=== PATIENT | female | born 1990 | race Caucasian/White ===

== ENCOUNTER 2016-11-27 04:20 | Emergency (ER) | payer BC ==
[2016-11-27 04:27] VITALS: RESP 16
--- NOTE | 2016-11-27 04:32 | EDPHY ---
H & P Stated Complaint: Nauseated/sinus congestion/ fatigue HPI/ROS: HPI CHIEF COMPLAINT: Nauseated, sinus congestion, sore throat, chills, cough with productive sputum HISTORY OF PRESENT ILLNESS: This patient is a very pleasant 26-year-old female denies any significant medical history except for Crohn's disease, she is on immunosuppressants, the patient presents to the emergency room the 4-5 days of cold symptoms. Patient states that she has had intermittent nausea sinus congestion, runny nose clear, as well as cough sometimes productive, clear sputum. No blood. Denies chest pain shortness of breath. Intermittent chills. She denies any urinary symptoms. Past Medical History: Crohn's disease Past Surgical History: No recent surgery Social History: Denies daily use drugs alcohol tobacco products. Grad student. Family History: Noncontributory. ROS REVIEW OF SYSTEMS: A comprehensive 10 point review of systems is otherwise negative aside from elements mentioned in the history of present illness. Exam Constitutional appears well nontoxic, triage nursing summary reviewed, vital signs reviewed, awake/alert. Eyes normal conjunctivae and sclera, EOMI, PERRLA. HENT posterior pharynx normal, no significant erythema or exudate, TMs bilaterally clear, patient does have pressure to her anterior maxillary sinus, tender palpation, no submandibular lymphadenopathy normal inspection, atraumatic , moist mucus membranes, no epistaxis, neck supple/ no meningismus, no raccoon eyes. Respiratory clear to auscultation bilaterally, normal breath sounds, no respiratory distress, no wheezing. Cardiovascular rate normal, regular rhythm, no murmur, no edema, distal pulses normal. Gastrointestinal soft, non-tender, no rebound, no guarding, normal bowel sounds, no distension, no pulsatile mass. Genitourinary no CVA tenderness. Musculoskeletal no midline vertebral tenderness, full range of motion, no calf swelling, no tenderness of extremities, no meningismus, good pulses, neurovascularly intact. Skin pink, warm, & dry, no rash, skin atraumatic. Neurologic awake, alert and oriented x 3, AAOx3, moves all 4 extremities equally, motor intact, sensory intact, CN II-XII intact, normal cerebellar, normal vision, normal speech. Psychiatric normal mood/affect. Heme/Lymph/Immune no lymphadenopathy. Differential Diagnosis: Includes but is not limited to in a particular order, viral syndrome, influenza, viral pneumonia, bacterial pneumonia, atypical pneumonia Medical Decision Making: Plan for this patient chest x-ray two view. Influenza test. Zofran for nausea. Re-evaluation: 0527AM: On re-evaluation patient is resting comfortably. Vital signs are stable. Afebrile. Nontoxic appearing. Given her sinus pressure cough I will treat for acute sinusitis. Amoxicillin. 1st dose given here in emergency room. Her chest x-ray reviewed I do not appreciate acute cardiopulmonary disease. Specifically I do not appreciate pneumonia. Source: Patient - Personal History LMP (Females 10-55): 8-14 Days Ago Current Tetanus/Diphtheria Vaccine: Yes Current Tetanus Diphtheria and Acellular Pertussis (TDAP): Yes - Medical/Surgical History Hx Asthma: No Hx Chronic Respiratory Disease: No Hx Diabetes: No Hx Cardiac Disease: No Hx Renal Disease: No Hx Cirrhosis: No Hx Alcoholism: No Hx HIV/AIDS: No Hx Splenectomy or Spleen Trauma: No Other PMH: Crohns - Social History Smoking Status: Never smoked Constitutional: Initial Vital Signs Temperature (C) 37.4 C 11/27/16 04:24 Heart Rate 96 11/27/16 04:24 Respiratory Rate 16 11/27/16 04:24 Blood Pressure 124/94 H 11/27/16 04:24 O2 Sat (%) 97 11/27/16 04:24 O2 Delivery Mode Room Air Allergies/Adverse Reactions: No Known Allergies Allergy (Unverified 11/27/16 04:27) Home Medications: Medication Instructions Recorded Amoxicillin 500 mg PO TID 7 Days cap 11/27/16 Birthcontrol 11/27/16 CIMZIA 11/27/16 CeleBREX 11/27/16 Methotrexate Sodium 11/27/16 Vit B12/Pyridoxine/Thiamine 11/27/16 Medical Decision Making - Data Points Laboratory Results: 11/27/16 04:30 Influenza A & B (PCR) Pending Medications Given: Discontinued Medications Ondansetron HCl (Zofran Odt) 4 mg PO EDNOW ONE Stop: 11/27/16 04:39 Last Admin: 11/27/16 04:41 Dose: 4 mg Departure - Departure Disposition: Home, Routine, Self-Care Clinical Impression: Sinusitis Qualifiers: Sinusitis location: maxillary Chronicity: acute Recurrence: non-recurrent Qualified Code(s): J01.00 - Acute maxillary sinusitis, unspecified Condition: Good Instructions: Sinusitis (ED) Additional Instructions: 1.Drink lots of fluids. 2. Tylenol Motrin for pain control. 3. Stay well-hydrated. 4. Rest. 5. Amoxicillin as prescribed. 6. Return to the ER for worsening symptoms questions or concerns. Referrals: Patient,NotPresent [Unknown] - As per Instructions Prescriptions: Amoxicillin 500 mg PO TID 7 Days cap
[2016-11-27] MEDS ORDERED: ONDANSETRON DISINTEGRATING 4 MG TAB PO ONE (04:38)
[2016-11-27] MEDS ORDERED: AMOXICILLIN 250 MG PREPACK#4 BTL TAKEHOME ONE (05:26)
[2016-11-27 06:30] VITALS: BP 130/74; PULSE 73; TEMP 97.9; O2SAT 98
== END 2016-11-27 06:30 | disposition home or self-care (01) ==
DX: J01.00 Acute maxillary sinusitis, unspecified (principal)

== ENCOUNTER 2017-03-21 17:44 | Emergency (ER) | payer BC ==
[2017-03-21 18:04] VITALS: BP 144/116; PULSE 94; RESP 17; TEMP 98.6; O2SAT 96
--- NOTE | 2017-03-21 18:33 | EDPHY ---
H & P HPI/ROS: Chief complaint: Left leg laceration History of present illness: This is a 26-year-old female who presents to the emergency department for left leg laceration. Patient reports earlier today she was standing on skis when she tipped over and 1 of the ski struck her left lopez cutting it open. Minimal pain. Minimal bleeding. She continued skiing for a few more hours. It was only and tell after she took off her ski closing that she noticed a laceration. She denies other associated signs or symptoms including no abnormal coolness or paresthesias in the leg. No difficulty moving the leg. She is ambulating well. Her tetanus is up-to-date. Smoking Status: Never smoked Physical Exam: General: Alert, nontoxic Skin: 2 cm horizontally oriented laceration left mid lopez Musculoskeletal: Patient is moving the left lower extremity in all sinha without difficulty Vascular: DP and PT pulses 2+ Neurologic: Sensation intact throughout the left leg Constitutional: Initial Vital Signs Temperature (C) 37 C 03/21/17 18:02 Heart Rate 94 03/21/17 18:02 Respiratory Rate 17 03/21/17 18:02 Blood Pressure 144/116 H 03/21/17 18:02 O2 Sat (%) 96 03/21/17 18:02 O2 Delivery Mode Room Air Allergies/Adverse Reactions: No Known Allergies Allergy (Verified 03/21/17 18:01) Home Medications: Medication Instructions Recorded Birthcontrol 11/27/16 CIMZIA 11/27/16 CeleBREX 11/27/16 Methotrexate Sodium 11/27/16 Vit B12/Pyridoxine/Thiamine 11/27/16 MDM/Departure - MDM Procedures: Procedure: Laceration repair. Verbal consent was obtained from the patient. The 2 cm laceration on the left leg was anesthetized in the usual fashion. The wound was irrigated, draped and explored to its base with a gloved finger. There were no deep structures involved. No tendon injury was identified. The wound was repaired with 4 0 Ethilon, 3 simple interrupted sutures. The wound repair was simple. The procedure was performed by myself. ED Course/Re-evaluation: Patient seen under the supervision of my secondary supervising physician Dr. Deshaun Fernandez. Patient presents to the emergency department for a left leg laceration. The leg is neurovascularly intact. It has been cleaned, repaired and dressed. Her tetanus is already up-to-date. Home care is discussed. Return precautions given. - Depart Disposition: Home, Routine, Self-Care Clinical Impression: Leg laceration Qualifiers: Encounter type: initial encounter Laterality: left Qualified Code(s): S81.812A - Laceration without foreign body, left lower leg, initial encounter Condition: Good Instructions: Care For Your Stitches (ED), Laceration (ED), Acute Wounds (ED) Additional Instructions: Follow-up with your primary care doctor this week for recheck Stitches to be removed in approximately 12 days If symptoms worsen or new symptoms develop return to the emergency room for recheck Referrals: SAMMIE MENDIOLA [Other] - As per Instructions
== END 2017-03-21 18:37 | disposition home or self-care (01) ==
PROC: 0HQLXZZ Repair Left Lower Leg Skin, External Approach (ICD-10-PCS; principal; 2017-03-21)
DX: S81.812A Laceration without foreign body, left lower leg, initial encounter (principal); W22.8XXA Striking against or struck by other objects, initial encounter

== ENCOUNTER 2017-04-30 11:38 | Emergency (ER) | payer BC ==
[2017-04-30 11:59] VITALS: RESP 16
[2017-04-30] MEDS ORDERED: KETOROLAC 15 MG/1 ML SDV IVP ONE (13:07)
--- NOTE | 2017-04-30 13:07 | EDPHY ---
H & P Stated Complaint: l sided pelvic pain similar to when had ovarian cyst before Time Seen by Provider: 04/30/17 12:34 HPI/ROS: CHIEF COMPLAINT: Lower abdominal pain HISTORY OF PRESENT ILLNESS: This is a 26-year-old female with Crohn's disease who presents after the abrupt onset of lower abdominal pain following intercourse. The pain began about 15 min after intercourse. Pain extends across her lower abdomen but is worse on the left. She took Zofran and Tylenol with some relief of her nausea but minimal relief of her pain. She has had a previous ovarian cyst rupture after intercourse and this feels much like that event. She has not had fever. She had nausea but no vomiting. She has not had diarrhea or constipation. Her Crohn's disease is in good control. Her pain is nothing like what she has experienced in the past with Crohn's. No urinary symptoms. She denies vaginal discharge. She is menstruating. REVIEW OF SYSTEMS: A ten point review of systems was performed and is negative with the exception of the items mentioned in the HPI. Past medical history: Crohn's disease, on biologics (cimzia) and methotrexate Social history: She is a student outreach coordinator in physics. She does not use tobacco products. She drinks alcohol on occasion. General Appearance: Alert. Vital signs reviewed. Blood pressure 122/88 at triage. Eyes: Pupils equal and round, no conjunctival injection, no discharge. Anicteric. ENT, Mouth: Mucous membranes are moist, no oropharyngeal erythema or edema. Neck: No lymphadenopathy, supple. Respiratory: Lungs are clear to auscultation; no wheezes, rales, or rhonchi. Cardiovascular: Regular rate and rhythm; no murmur, rub, or gallop. Gastrointestinal: Abdomen is soft with mild tenderness in both lower quadrants , somewhat worse on the left, no guarding or rebound, no masses or organomegaly , bowel sounds normal. Skin: Warm and dry, no rashes on exposed skin, normal color. Back: Nontender to palpation over the thoracolumbar spine. No CVAT. Extremities: No lower extremity edema, no calf tenderness or swelling. Neurological: Alert and oriented. Moving all four extremities easily and equally. Psychiatric: Normal affect. - Personal History LMP (Females 10-55): Now Current Tetanus/Diphtheria Vaccine: Yes - Medical/Surgical History Hx Asthma: No Hx Chronic Respiratory Disease: No Hx Diabetes: No Hx Cardiac Disease: No Hx Renal Disease: No Hx Cirrhosis: No Hx Alcoholism: No Hx HIV/AIDS: No Hx Splenectomy or Spleen Trauma: No Other PMH: Crohns/ovarian cyst - Social History Smoking Status: Never smoked Constitutional: Initial Vital Signs Temperature (C) 36.7 C 04/30/17 11:57 Heart Rate 82 04/30/17 11:57 Respiratory Rate 16 04/30/17 11:57 Blood Pressure 122/88 H 04/30/17 11:57 O2 Sat (%) 97 04/30/17 11:57 O2 Delivery Mode Room Air Allergies/Adverse Reactions: No Known Allergies Allergy (Verified 04/30/17 11:56) Home Medications: Medication Instructions Recorded Birthcontrol 11/27/16 CIMZIA 11/27/16 CeleBREX 11/27/16 Methotrexate Sodium 11/27/16 Vit B12/Pyridoxine/Thiamine 11/27/16 Medical Decision Making ED Course/Re-evaluation: Ultrasound ordered to assess for ruptured ovarian cyst. She will be given Toradol for pain relief. CBC, chemistries, and beta HCG ordered. 1:20 p.m.. Patient's beta HCG is positive. She was informed of this result just prior to the ultrasound and is understandably upset, as she is on methotrexate. Ultrasound shows no intrauterine . There is a right corpus luteum cyst with minimal free fluid, however, ectopic cannot be ruled out. No torsion. Labs reviewed. Her white blood cell count is elevated at over 14,000. She does not have signs or symptoms of infection and I do not suspect an infection such as PID or appendicitis. Ultrasound results relayed to the patient. Quantitative beta HCG is 185. I spoke with the OBGYN ribbon cutter, Dr. Rod. He will follow her in the office. She will have a repeat quantitative beta HCG in 48 hr, for which I have written a prescription. Rh positive. This will be done prior to her appointment with Dr. Rod. I reviewed the danger signs with her that should prompt her to return to the emergency department. She understands that it is unclear whether not she has a tubal . Differential Diagnosis: I considered a differential diagnosis that includes but is not limited to ruptured ovarian cyst, ectopic , PID, post intercourse pain, pain related to menses, appendicitis, and pain related to Crohn's disease. - Data Points Laboratory Results: Laboratory Results 04/30/17 12:12 04/30/17 12:12 Medications Given: Discontinued Medications Ketorolac Tromethamine (Toradol) 15 mg IVP ONCE ONE Stop: 04/30/17 13:08 Last Admin: 04/30/17 13:12 Dose: 15 mg Departure - Departure Disposition: Home, Routine, Self-Care Clinical Impression: Positive blood test Condition: Good Instructions: Ectopic (ED) Additional Instructions: I am giving information about ectopic . I do not know whether you have an ectopic or not. As you know, your blood test was positive but we do not see an early in your uterus. Follow up with Dr. Rod on Monday. His office should call you to arrange a time. If you do not hear from them, you should call the office yourself. You need to have your blood drawn before seeing him. If you have worsening pain, fainting, heavy bleeding, any new or concerning symptoms--you should be re-evaluated immediately. Referrals: NONE *PRIMARY CARE P,. [Primary Care Provider] - As per Instructions Oral Rod MD [Medical Doctor] - As per Instructions
[2017-04-30 13:10] LABS: PLATELET COUNT 261 10^3/uL (150-400)
[2017-04-30 14:01] VITALS: TEMP 98.4
[2017-04-30 16:28] VITALS: BP 139/87; PULSE 82; O2SAT 97
== END 2017-04-30 16:59 | disposition home or self-care (01) ==
DX: Z33.1 Pregnant state, incidental (principal)
CPT/HCPCS: 96374; J1885

== ENCOUNTER 2017-05-18 20:52 | Emergency (ER) | payer BC ==
[2017-05-18 21:01] VITALS: RESP 16
[2017-05-18] MEDS ORDERED: ONDANSETRON 4 MG/2 ML VIAL ONE (21:26)
[2017-05-18] MEDS ORDERED: NS 1,000 ML IV ONE ×2 (21:28→22:14)
[2017-05-18] MEDS ORDERED: ONDANSETRON 4 MG/2 ML VIAL IVP ONE (21:28)
[2017-05-18] MEDS ORDERED: fentaNYL 100 MCG/2 ML INJ IVP ONE (21:40)
[2017-05-18 21:56] LABS: PLATELET COUNT 256 10^3/uL (150-400)
--- NOTE | 2017-05-18 22:15 | EDPHY ---
H & P Stated Complaint: RLQ ABD PAIN 20 MINUTES Time Seen by Provider: 05/18/17 20:59 HPI/ROS: HPI CHIEF COMPLAINT: Abdominal pain, right lower quadrant HISTORY OF PRESENT ILLNESS: This patient 26-year-old female she has history of Crohn's disease on methotrexate, she presents emergency room with abdominal pain. The pain is located right lower quadrant. She states this was sudden onset while sitting at rest and studying. Became very sharp and intense. Located right lower quadrant. She had nausea with no vomiting. She denies fever. Denies chest pain or shortness of breath. Denies diarrhea. Current level pain 05/20. She did receive 50 mcg of fentanyl prior to be seen her. Past Medical History: Crohn's disease Past Surgical History: Bowel resection Social History: Denies drugs alcohol tobacco products Family History: Noncontributory ROS REVIEW OF SYSTEMS: A comprehensive 10 point review of systems is otherwise negative aside from elements mentioned in the history of present illness. Exam Constitutional appears well nontoxic no acute distress triage nursing summary reviewed, vital signs reviewed, awake/alert. Eyes normal conjunctivae and sclera, EOMI, PERRLA. HENT normal inspection, atraumatic, moist mucus membranes, no epistaxis, neck supple/ no meningismus, no raccoon eyes. Respiratory clear to auscultation bilaterally, normal breath sounds, no respiratory distress, no wheezing. Cardiovascular rate normal, regular rhythm, no murmur, no edema, distal pulses normal. Gastrointestinal tender palpation right lower quadrant, no rebound, no guarding , normal bowel sounds, no distension, no pulsatile mass. Genitourinary no CVA tenderness. Musculoskeletal no midline vertebral tenderness, full range of motion, no calf swelling, no tenderness of extremities, no meningismus, good pulses, neurovascularly intact. Skin pink, warm, & dry, no rash, skin atraumatic. Neurologic awake, alert and oriented x 3, AAOx3, moves all 4 extremities equally, motor intact, sensory intact, CN II-XII intact, normal cerebellar, normal vision, normal speech. Psychiatric normal mood/affect. Heme/Lymph/Immune no lymphadenopathy. Differential diagnosis includes but is not limited to and in no particular order : Bowel obstruction, appendicitis, gallbladder disease, diverticulitis, colitis , enteritis, perforated viscus, gastritis, GERD, esophagitis, urinary tract infection, pyelonephritis, kidney stones Medical Decision Making: Plan for this patient IV establishment with blood draw , fentanyl has already been given for pain control, check basic blood work, test, CT scan abdomen pelvis with IV contrast. Rule out appendicitis. Possible ruptured ovarian cyst. Re-evaluation: CT in abdomen pelvis with IV contrast: Shows no evidence of acute inflammation. She has Crohn's disease but there is no active inflammation seen on CT scan. Unable to visualize appendix. Question appendix is already removed. Additionally there is free fluid in the pelvis and a right ovarian cyst. Her pain may be from the free fluid right ovarian cyst. NuvaRing in vagina. 1234: Patient re-examined she is feeling much better after IV pain medicine. Re-examination of the abdomen is soft nontender. She is not vomiting. Most likely has a small right ovarian cyst that ruptured with some small amount of free fluid causing her pain. This was sudden onset. Blood work is reassuring. The CT was unable to visualize her appendix. She is unsure if she has had her appendix removed but she did have bowel resection she thinks it may have been removed when she had bowel resection. She denies fever. Denies chest pain. Denies shortness of breath. States she is feeling better would like to go home. I did discussed return precautions with her she understands return emergency room she develops worsening abdominal pain fever vomiting. Source: Patient - Personal History Current Tetanus Diphtheria and Acellular Pertussis (TDAP): Yes - Medical/Surgical History Hx Asthma: No Hx Chronic Respiratory Disease: No Hx Diabetes: No Hx Cardiac Disease: No Hx Renal Disease: No Hx Cirrhosis: No Hx Alcoholism: No Hx HIV/AIDS: No Hx Splenectomy or Spleen Trauma: No Other PMH: Crohns/ovarian cyst, MISCARRIAGE , ILIO/COLIC RESECTION 2005 - Social History Smoking Status: Never smoked Constitutional: Initial Vital Signs Temperature (C) 36.6 C 05/18/17 20:59 Heart Rate 88 05/18/17 20:59 Respiratory Rate 16 05/18/17 20:59 Blood Pressure 125/94 H 05/18/17 20:59 O2 Sat (%) 100 05/18/17 20:59 O2 Delivery Mode Room Air Allergies/Adverse Reactions: No Known Allergies Allergy (Verified 04/30/17 11:56) Home Medications: Medication Instructions Recorded Birthcontrol 11/27/16 CIMZIA 11/27/16 CeleBREX 11/27/16 Methotrexate Sodium 11/27/16 Vit B12/Pyridoxine/Thiamine 11/27/16 Hydrocodone/APAP 5/325 [[place] 1 - 2 tab PO Q4H PRN #10 tab 05/19/17 5/325] Medical Decision Making - Diagnostics Imaging Results: Imaging Impressions Abdomen CT 05/18/17 22:18 Impression: Indeterminate ringlike structure in the vagina. Mild splenomegaly. Otherwise, no acute abnormalities in the abdomen or pelvis. Dr. Escobar discussed these findings by telephone with Lavelle Balderas MD on 05/18/2017 at 2328 hours. - Data Points Laboratory Results: Laboratory Results 05/18/17 21:10 05/18/17 21:10 05/18/17 05/18/17 05/18/17 22:25 21:45 21:10 WBC RBC Hgb Hct MCV MCH MCHC RDW Plt Count MPV Neut % (Auto) Lymph % (Auto) Hand % (Auto) Eos % (Auto) Baso % (Auto) Nucleat RBC Rel Count Absolute Neuts (auto) Absolute Lymphs (auto) Absolute Monos (auto) Absolute Eos (auto) Absolute Basos (auto) Absolute Nucleated RBC Immature Gran % Immature Gran # VBG Lactic Acid 1.2 mmol/L mmol/L (0.7-2.1) Sodium Potassium Chloride Carbon Dioxide Anion Gap BUN Creatinine Estimated GFR Glucose Calcium Total Bilirubin 0.6 mg/dL mg/dL (0.1-1.4) Conjugated Bilirubin 0.3 mg/dL mg/dL (0.0-0.5) Unconjugated Bilirubin 0.3 mg/dL mg/dL (0.0-1.1) AST 19 IU/L IU/L (14-46) ALT 27 IU/L IU/L (9-52) Alkaline Phosphatase 63 IU/L IU/L (38-126) Total Protein 7.3 g/dL g/dL (6.3-8.2) Albumin 4.4 g/dL g/dL (3.5-5.0) Lipase 142 IU/L IU/L (23-300) Urine Color PALE YELLOW Urine Appearance CLEAR Urine pH 6.0 (5.0-7.5) Ur Specific [place] 1.003 (1.002-1.030) Urine Protein NEGATIVE (NEGATIVE) Urine Ketones NEGATIVE (NEGATIVE) Urine Blood NEGATIVE (NEGATIVE) Urine Nitrate NEGATIVE (NEGATIVE) Urine Bilirubin NEGATIVE (NEGATIVE) Urine Urobilinogen NEGATIVE EU EU (0.2-1.0) Ur Leukocyte Esterase NEGATIVE (NEGATIVE) Urine Glucose NEGATIVE (NEGATIVE) 05/18/17 05/18/17 21:10 21:10 WBC 10.15 10^3/uL H 10^3/uL (3.80-9.50) RBC 4.33 10^6/uL 10^6/uL (4.18-5.33) Hgb 13.4 g/dL g/dL (12.6-16.3) Hct 38.6 % % (38.0-47.0) MCV 89.1 fL fL (81.5-99.8) MCH 30.9 pg pg (27.9-34.1) MCHC 34.7 g/dL g/dL (32.4-36.7) RDW 12.8 % % (11.5-15.2) Plt Count 256 10^3/uL 10^3/uL (150-400) MPV 10.4 fL fL (8.7-11.7) Neut % (Auto) 49.1 % % (39.3-74.2) Lymph % (Auto) 42.8 % % (15.0-45.0) Hand % (Auto) 6.0 % % (4.5-13.0) Eos % (Auto) 1.3 % % (0.6-7.6) Baso % (Auto) 0.5 % % (0.3-1.7) Nucleat RBC Rel Count 0.0 % % (0.0-0.2) Absolute Neuts (auto) 4.99 10^3/uL 10^3/uL (1.70-6.50) Absolute Lymphs (auto) 4.34 10^3/uL H 10^3/uL (1.00-3.00) Absolute Monos (auto) 0.61 10^3/uL 10^3/uL (0.30-0.80) Absolute Eos (auto) 0.13 10^3/uL 10^3/uL (0.03-0.40) Absolute Basos (auto) 0.05 10^3/uL 10^3/uL (0.02-0.10) Absolute Nucleated RBC 0.00 10^3/uL 10^3/uL (0-0.01) Immature Gran % 0.3 % % (0.0-1.1) Immature Gran # 0.03 10^3/uL 10^3/uL (0.00-0.10) VBG Lactic Acid Sodium 141 mEq/L mEq/L (135-145) Potassium 4.0 mEq/L mEq/L (3.5-5.2) Chloride 104 mEq/L mEq/L (97-110) Carbon Dioxide 26 mEq/l mEq/l (22-31) Anion Gap 11 mEq/L mEq/L (8-16) BUN 16 mg/dL mg/dL (7-23) Creatinine 0.8 mg/dL mg/dL (0.6-1.0) Estimated GFR > 60 Glucose 101 mg/dL H mg/dL (70-100) Calcium 9.5 mg/dL mg/dL (8.5-10.4) Total Bilirubin Conjugated Bilirubin Unconjugated Bilirubin AST ALT Alkaline Phosphatase Total Protein Albumin Lipase Urine Color Urine Appearance Urine pH Ur Specific [place] Urine Protein Urine Ketones Urine Blood Urine Nitrate Urine Bilirubin Urine Urobilinogen Ur Leukocyte Esterase Urine Glucose Medications Given: Discontinued Medications Fentanyl (Sublimaze) 50 mcg IVP EDNOW ONE Stop: 05/18/17 21:41 Last Admin: 05/18/17 21:43 Dose: 50 mcg Hydromorphone HCl (Dilaudid) 0.5 mg IVP EDNOW ONE Stop: 05/18/17 23:32 Last Admin: 05/18/17 23:34 Dose: 0.5 mg Sodium Chloride (Ns) 1,000 mls @ 0 mls/hr IV ONCE ONE PRN Reason: Wide Open Stop: 05/18/17 21:29 Last Admin: 05/18/17 21:32 Dose: 1,000 mls Sodium Chloride (Ns) 1,000 mls @ 0 mls/hr IV EDNOW ONE; Wide Open PRN Reason: Protocol Stop: 05/18/17 22:15 Last Admin: 05/18/17 22:24 Dose: 1,000 mls Ondansetron HCl (Zofran) 4 mg IVP EDNOW ONE Stop: 05/18/17 21:29 Last Admin: 05/18/17 21:33 Dose: 4 mg Departure - Departure Disposition: Home, Routine, Self-Care Clinical Impression: Abdominal pain Qualifiers: Abdominal location: lower abdomen, unspecified Qualified Code(s): R10.30 - Lower abdominal pain, unspecified Ovarian cyst Qualifiers: Laterality: right Qualified Code(s): N83.201 - Unspecified ovarian cyst, right side Condition: Good Instructions: Ovarian Cyst (ED), Acute Abdominal Pain (ED) Additional Instructions: 1. Return emergency room if develops worsening abdominal pain fever vomiting. Referrals: NONE *PRIMARY CARE P,. [Primary Care Provider] - As per Instructions Prescriptions: Hydrocodone/APAP 5/325 [[place] 5/325] 1 - 2 tab PO Q4H PRN #10 tab PRN Reason: Pain, Moderate
[2017-05-18] MEDS ORDERED: IOPAMIDOL (ISOVUE-300) 100 ML BTL ONE (22:23)
[2017-05-18] MEDS ORDERED: HYDROmorphONE/DILAUDID 2 MG/ML INJ IVP ONE (23:31)
[2017-05-18] MEDS ORDERED: HYDROmorphONE/DILAUDID 2 MG/ML INJ ONE (23:33)
[2017-05-19 00:17] VITALS: O2SAT 95
[2017-05-19] MEDS ORDERED: HYDROCODONE/APAP 5/325 TAB ONE (00:43)
[2017-05-19] MEDS ORDERED: HYDROCODONE/APAP 5/325 TAB PO ONE (00:45)
[2017-05-19 00:49] VITALS: BP 124/86; PULSE 86; TEMP 98.6
== END 2017-05-19 00:48 | disposition home or self-care (01) ==
DX: N83.201 Unspecified ovarian cyst, right side (principal); E86.9 Volume depletion, unspecified
CPT/HCPCS: 96374; J1170; J2405; J3010; Q9967

== ENCOUNTER → 2017-06-01 | Outpatient (CLI) | payer BC ==
--- NOTE | 2017-06-02 13:05 | CPEEG ---
[f rep st] ELECTROENCEPHALOGRAM DATE OF STUDY: 06/01/2017 INTERPRETATION: Normal EEG during wakefulness and sleep. There were no potentially epileptogenic ab normalities present during the recording. REPORT: This EEG contains 10 Hz alpha activity over the posterior head regions. The background acti vity was normal and symmetric. There was no abnormal activation at rest, during photic stimulation o r hyperventilation. The patient became drowsy and fell asleep during the study. There was no abnorm al activation during drowsiness, sleep, or during times of arousal. /[id number]/MODL
== END ==
LOC: FCPNEURO 14:45
PROVIDERS: ATTEND Physician Assistant Medical
DX: R41.3 Other amnesia (principal); R61 Generalized hyperhidrosis; K50.90 Crohn's disease, unspecified, without complications

== ENCOUNTER → 2017-06-01 | Outpatient (CLI) | payer BC ==
[~2017-06-01] MED LIST: GADOBUTROL 10 ML VIAL IVP ONE
== END ==
LOC: FIMAGING 07:57
PROVIDERS: ATTEND Physician Assistant Medical
DX: R41.3 Other amnesia (principal); R51 Headache
CPT/HCPCS: A9585

== ENCOUNTER 2017-08-18 19:55 | Emergency (ER) | payer BC ==
[2017-08-18 20:04] VITALS: BP 119/85
--- NOTE | 2017-08-18 21:01 | EDPHY ---
H & P Time Seen by Provider: 08/18/17 20:43 HPI/ROS: CHIEF COMPLAINT: "Spot in my left eye" HISTORY OF PRESENT ILLNESS: Patient is a 27-year-old female with a history Crohn's disease the presents emergency department with visual change in her left eye. The patient states she took a nap earlier today when she woke she noticed a small spot on her left eye. She felt like it was in the periphery. She described at the 1 o'clock position. It does not move. She has no reported visual acuity change. She denies any eye pain. No recent trauma. REVIEW OF SYSTEMS: My complete review of systems is negative except as mentioned in the HPI. Past Medical/Surgical History: Includes Crohn's disease, ovarian cyst, miscarriage Past surgical history: Includes ileocolic resection Smoking Status: Never smoked Physical Exam: Vitals noted GENERAL: Well-appearing, in no acute distress, alert. Visual acuity: Noted. Eyelids: Normal inspection. Conjunctiva and sclera: Normal inspection. No foreign material. No subconjunctival hemorrhage. No exudate. Not injected. Corneas: Normal inspection. Examined with fluorescein dye: No uptake, abrasion, or ulcer. EOMs: Intact. Pupils: PERRL, normal accommodation. Anterior chambers: Normal inspection. No hyphema. No cells or flare. Posterior segments: Normal funduscopic exam Constitutional: Initial Vital Signs Temperature (C) 36.7 C 08/18/17 20:02 Heart Rate 74 08/18/17 20:02 Respiratory Rate 16 08/18/17 20:02 Blood Pressure 119/85 H 08/18/17 20:02 O2 Sat (%) 98 08/18/17 20:02 O2 Delivery Mode Room Air Allergies/Adverse Reactions: No Known Allergies Allergy (Verified 08/18/17 20:01) Home Medications: Medication Instructions Recorded Birthcontrol 11/27/16 CIMZIA 11/27/16 CeleBREX 11/27/16 Methotrexate Sodium 11/27/16 Medical Decision Making ED Course/Re-evaluation: In the emergency department I discussed my findings with the patient. I answered all her questions. Patient states she has close follow-up with her eye doctor. She already spoke with him on the phone. They will see her tomorrow. I see no obvious deformity of the fundus on my limited exam. I feel she is safe for discharge. She will follow up with assistant men's soccer coach tomorrow. She is given warnings prior to leaving. Differential Diagnosis: My differential includes but is not limited to vitreous hemorrhage, retinal detachment, floater Departure - Departure Disposition: Home, Routine, Self-Care Clinical Impression: Visual changes Condition: Good Instructions: Blurred Vision (ED) Additional Instructions: Return with increasing visual change, pain, or any other concerns. Call your eye doctor in the morning for re-evaluation. Referrals: Echo Tiwari MD [Non Staff Provider (MD)] - 1 day, if not improved
== END 2017-08-18 21:36 | disposition home or self-care (01) ==
DX: H53.8 Other visual disturbances (principal)